=== PATIENT | female | born 1990 | race African-American/Black ===

== ENCOUNTER 2017-06-29 15:52 | Emergency (ER) | payer SELFPAY ==
[~2017-06-29] VITALS: Ht 157.5 cm; Wt 90.0 kg
[2017-06-29 15:59] VITALS: BP 155/92; PULSE 79; RESP 18; TEMP 98.8; O2SAT 100
[2017-06-29 18:28] LABS: BASOPHIL % 0.3 % (0.0-2.0); EOSINOPHIL # 0.1 TH/MM3 (0-0.4); EOSINOPHIL % 0.9 % (0.0-4.0); HEMATOCRIT 37.2 % (35.0-46.0); HEMOGLOBIN 12.9 GM/DL (11.6-15.3); LYMPH % 22.5 % (9.0-44.0); LYMPHOCYTE # 2.3 TH/MM3 (1.0-4.8); MEAN CELL VOLUME 88.6 FL (80.0-100.0); MEAN CORPUSCULAR HEMOGLOBIN 30.7 PG (27.0-34.0); MEAN CORPUSCULAR HGB CONC 34.6 % (32.0-36.0); MEAN PLATELET VOLUME 10.5 FL (7.0-11.0); MONO % 7.1 % (0.0-8.0); MONOCYTE # 0.7 TH/MM3 (0-0.9); NEUT % 69.2 % (16.0-70.0); PLATELET COUNT 234 TH/MM3 (150-450); RED CELL DISTRIBUTION WIDTH 13.1 % (11.6-17.2); WHITE BLOOD COUNT 10.1 TH/MM3 (4.0-11.0)
[2017-06-29 18:55] LABS: ALBUMIN 4.2 GM/DL (3.4-5.0); AST (GOT) 13 U/L (15-37); BICARBONATE 26.4 MEQ/L (21.0-32.0); BLOOD UREA NITROGEN 10 MG/DL (7-18); CALCIUM 8.9 MG/DL (8.5-10.1); CHLORIDE 103 MEQ/L (98-107); CREATININE 0.74 MG/DL (0.50-1.00); GLOMERULAR FILTRATION RATE 112 ML/MIN (>89); GLUCOSE,RANDOM 80 MG/DL (74-106); SODIUM (NA) 138 MEQ/L (136-145)
[2017-06-29 18:56] LABS: ALT (GPT) 20 U/L (10-53)
[2017-06-29 18:59] LABS: ALKALINE PHOSPHATASE 64 U/L (45-117); TOTAL BILIRUBIN ADULT 0.5 MG/DL (0.2-1.0); TOTAL PROTEIN 8.3 GM/DL (6.4-8.2)
[2017-06-29 19:03] LABS: BACTERIA, URINE MANY /hpf; BILIRUBIN, URINE NEG (NEG); BLOOD, URINE LARGE (NEG); GLUCOSE,URINE NEG (NEG); KETONE, URINE NEG (NEG); NITRITE,URINE NEG (NEG); SQUAMOUS EPITHELIAL CELL URINE 21 /hpf (0-5); URINE LEUKOCYTE ESTERASE MOD (NEG)
[2017-06-29 19:04] LABS: URINE COLOR DARK-RED (YELLW/STRAW)
[2017-06-29] MEDS ORDERED: PHEN0.4T PO (19:12)
[2017-06-29] MEDS ORDERED: MACR100C2 PO (19:12)
[2017-06-29] MEDS ORDERED: NITROFURANTOIN MONOHYD MACROCR 100 MG CAP PO ONE (19:15)
--- NOTE | 2017-06-29 19:17 | PD ---
HPI Chief Complaint: Abdominal Pain Time Seen by Provider: 19:07 Travel History International Travel<30 days: No Contact w/Intl Traveler<30days: No Traveled to known affect area: No History of Present Illness HPI 27-year-old female presents for evaluation of dysuria, hematuria, increased urinary frequency, suprapubic discomfort. Symptoms started today at 2 PM. She reports a pressure sensation in the suprapubic region, burning sensation when she urinates. She denies any unusual vaginal discharge. She denies nausea, vomiting, fevers, chills, flank pain, diarrhea or constipation. No other complaints at this time. PFSH Past Medical History ?: Unknown Past Surgical History Other Surgery: Yes (fibroid tumor removed right breast) Social History Alcohol Use: No Tobacco Use: No Substance Use: No Allergies-Medications (Allergen,Severity, Reaction): Coded Allergies: Penicillins (Verified Allergy, Unknown, 06/29/17) Sulfa (Sulfonamide Antibiotics) (Verified Allergy, Unknown, 06/29/17) aspirin (Verified Allergy, Unknown, 06/29/17) Reported Meds & Prescriptions Reported Meds & Active Scripts Active Pyridium (Phenazopyridine HCl) 100 Mg Tab 100 Mg PO Q8H PRN Macrobid (Nitrofurantoin Monoh/Nitrofur Macro) 100 Mg Cap 100 Mg PO BID 7 Days Review of Systems Except as stated in HPI: all other systems reviewed are Neg Physical Exam Narrative GENERAL: Well-nourished female no acute distress SKIN: Warm and dry. HEAD: Atraumatic. Normocephalic. EYES: Pupils equal and round. No scleral icterus. No injection or drainage. ENT: No nasal bleeding or discharge. Mucous membranes pink and moist. NECK: Trachea midline. No JVD. CARDIOVASCULAR: Regular rate and rhythm. No murmur appreciated. RESPIRATORY: No accessory muscle use. Clear to auscultation. Breath sounds equal bilaterally. GASTROINTESTINAL: Abdomen soft, mild suprapubic tenderness without guarding. Data Data Last Documented VS Vital Signs Date Time Temp Pulse Resp B/P (MAP) Pulse Ox O2 Delivery O2 Flow Rate FiO2 06/29/17 15:59 98.8 79 18 155/92 (113) 100 Orders Orders Complete Blood Count With Diff (06/29/17 16:01) Comprehensive Metabolic Panel (06/29/17 16:01) Lipase (06/29/17 16:01) Urinalysis - C+S If Indicated (06/29/17 16:01) Ed Urine Pregnancytest Poc (06/29/17 16:01) Urine Culture (06/29/17 17:10) Ed Discharge Order (06/29/17 19:14) Nitrofurantoin Monohyd Macrocr (Macrobid (06/29/17 19:15) Labs Laboratory Tests Test 06/29/17 17:10 White Blood Count 10.1 TH/MM3 Red Blood Count 4.20 MIL/MM3 Hemoglobin 12.9 GM/DL Hematocrit 37.2 % Mean Corpuscular Volume 88.6 FL Mean Corpuscular Hemoglobin 30.7 PG Mean Corpuscular Hemoglobin Concent 34.6 % Red Cell Distribution Width 13.1 % Platelet Count 234 TH/MM3 Mean Platelet Volume 10.5 FL Neutrophils (%) (Auto) 69.2 % Lymphocytes (%) (Auto) 22.5 % Monocytes (%) (Auto) 7.1 % Eosinophils (%) (Auto) 0.9 % Basophils (%) (Auto) 0.3 % Neutrophils # (Auto) 7.0 TH/MM3 Lymphocytes # (Auto) 2.3 TH/MM3 Monocytes # (Auto) 0.7 TH/MM3 Eosinophils # (Auto) 0.1 TH/MM3 Basophils # (Auto) 0.0 TH/MM3 CBC Comment DIFF FINAL Differential Comment Urine Color DARK-RED Urine Turbidity CLOUDY Urine pH 6.0 Urine Specific [place] 1.031 Urine Protein 300 mg/dL Urine Glucose (UA) NEG mg/dL Urine Ketones NEG mg/dL Urine Occult Blood LARGE Urine Nitrite NEG Urine Bilirubin NEG Urine Urobilinogen LESS THAN 2.0 MG/DL Urine Leukocyte Esterase MOD Urine RBC /hpf Urine WBC 45 /hpf Urine Squamous Epithelial Cells 21 /hpf Urine Bacteria MANY /hpf Microscopic Urinalysis Comment CULTURE INDICATED Blood Urea Nitrogen 10 MG/DL Creatinine 0.74 MG/DL Random Glucose 80 MG/DL Total Protein 8.3 GM/DL Albumin 4.2 GM/DL Calcium Level 8.9 MG/DL Alkaline Phosphatase 64 U/L Aspartate Amino Transf (AST/SGOT) 13 U/L Alanine Aminotransferase (ALT/SGPT) 20 U/L Total Bilirubin 0.5 MG/DL Sodium Level 138 MEQ/L Potassium Level 3.4 MEQ/L Chloride Level 103 MEQ/L Carbon Dioxide Level 26.4 MEQ/L Anion Gap 9 MEQ/L Estimat Glomerular Filtration Rate 112 ML/MIN Lipase 92 U/L [facility] Medical Decision Making Medical Screen Exam Complete: Yes Emergency Medical Condition: Yes Medical Record Reviewed: Yes Differential Diagnosis Cystitis, pyelonephritis, pelvic inflammatory disease, Narrative Course Lab work was obtained in triage revealing a potassium of 3.4, normal CBC, negative urine test, urinalysis and history are consistent with UTI. Pending culture results the patient will be started on Macrobid and Pyridium. She is stable for discharge. Diagnosis Primary Impression: Urinary tract infection Additional Instructions: Medication as prescribed. Stay well hydrated and well-nourished. Return for any emergent medical conditions. Med/Other Pt SpecificInfo: Prescription(s) given Scripts Phenazopyridine (Pyridium) 100 Mg Tab 100 MG PO Q8H Y for DYSURIA, #6 TAB 0 Refills Prov: Binh Paredes MD 06/29/17 Nitrofurantoin Monohydrate Macrocrystals (Macrobid) 100 Mg Cap 100 MG PO BID for Infection for 7 Days, #14 CAP 0 Refills Prov: Binh Paredes MD 06/29/17 Disposition: 01 DISCHARGE HOME Condition: Stable Yunior Simeon Jun 29, 2017 19:17
== END 2017-06-29 20:09 | disposition home or self-care (01) ==
LOC: NED 15:52 → NEPD 20:09
DX: N39.0 Urinary tract infection, site not specified (principal); B96.20 Unspecified Escherichia coli [E. coli] as the cause of diseases classified elsewhere; Z88.0 Allergy status to penicillin; Z88.2 Allergy status to sulfonamides; Z88.6 Allergy status to analgesic agent
CPT/HCPCS: 80053; 81001; 83690; 84703; 85025; 87077; 87086; 87186; 99283